=== PATIENT | male | born 1970 ===

== ENCOUNTER 2019-03-28 06:24 | Day surgery (SDC) | payer BC ==
[2019-03-28] MEDS ORDERED: MARCAINE 0.25% INFILTRATI ONE ×2 (06:39→09:22)
[2019-03-28] MEDS ORDERED: XYLOCAINE 1% 20 mL ONE (06:39)
--- NOTE | 2019-03-28 07:26 | Anesthesia Day of Surgery ---
Anesthesia Day of Surgery - Day of Surgery Patient Examined: Yes Patient H&P Reviewed: Yes Patient is NPO: Yes
--- NOTE | 2019-03-28 07:26 | Anesthesia Consultation ---
Anesthesia Consult and Med Hx Date of service: 03/28/19 - Airway Anesthetic Teeth Evaluation: Good ROM Head & Neck: Adequate Mental/Hyoid Distance: Adequate Mallampati Class: Class II Intubation Access Assessment: Probably Good - Cardiac Exam Cardiac Exam: RRR - Pre-Operative Health Status ASA Pre-Surgery Classification: ASA1 Proposed Anesthetic Plan: General, MAC - Pulmonary Hx Smoking: No - Other Systems Hx Cancer: No - Additional Comments Anesthesia Medical History Comments: Healthy. No home meds.
[2019-03-28] MEDS ORDERED: LACTATED RINGERS 1,000 ML IV SCH (08:00)
[2019-03-28] MEDS ORDERED: VERSED IV NR (08:00)
[2019-03-28] MEDS ORDERED: PEPCID PO NR (08:00)
[2019-03-28] MEDS ORDERED: VERSED ONE (08:40)
[2019-03-28] MEDS ORDERED: SUBLIMAZE ONE (08:40)
[2019-03-28] MEDS ORDERED: DIPRIVAN 10 MG/ML IV ONE ×2 (08:40→09:11)
[2019-03-28] MEDS ORDERED: ANCEF/STERILE WATER 2 GM/20 ML IV NR (09:00)
--- NOTE | 2019-03-28 09:20 | Short Stay Summary ---
Short Stay Documentation Date of service: 03/28/19 - History Principal diagnosis: RIGHT NECK CYST H&P: obtained from office - Allergies and Medications Current Medications: Allergies No Known Allergies Allergy (Verified 03/25/19 15:56) Home Medications Medication Instructions Recorded Confirmed Last Taken Type No Known Home Medications [No 03/25/19 03/25/19 Unknown History Reported Home Medications] Active Medications Cefazolin Sodium (Ancef/Sterile Water 2 Gm/20 Ml) 2 gm IV PREOP NR Stop: 03/28/19 20:00 Famotidine (Pepcid) 20 mg PO PREOP NR Stop: 03/28/19 20:00 Last Admin: 03/28/19 08:04 Dose: 20 mg Documented by: Lactated Ringer's (Lactated Ringers) 1,000 mls @ 100 mls/hr IV DIRECT MARLENY Last Admin: 03/28/19 07:40 Dose: 100 mls/hr Documented by: Midazolam HCl (Versed) 2 mg IV PREOP NR Stop: 03/28/19 23:59 - Brief post op/procedure progress note Date of procedure: 03/28/19 Pre-op diagnosis: right neck cyst Post-op diagnosis: same Procedure: excision of cyst right side of neck Anesthesia: MAC, local Findings: 2.5 cm cyst of right side of neck Surgeon: MITRA COSTA Estimated blood loss: minimal Pathology: list (cyst right neck) Specimen disposition: to lab Condition: stable - Hospital course Hospital course: Pt observed in PACU and discharged to home in stable condition when criteria met - Disposition Condition at discharge: Good Disposition: DC-01 TO HOME OR SELFCARE Short Stay Discharge Plan Activity: no restrictions Diet: regular Wound: open to air, per your surgeon's advice Additional Instructions: SEE PRINTED DISCHARGE INSTRUCTIONS Follow up with: ASHLEY MONACO MD [Primary Care Provider] - 7 Days MITRA COSTA DO [Staff Physician] - 14 Days Prescriptions: Ibuprofen [Motrin 800 MG tab] 800 mg PO Q8HR PRN #30 tablet PRN Reason: Pain, Moderate (4-6)
[2019-03-28] MEDS ORDERED: XYLOCAINE 1% 20 mL INFILTRATI ONE (09:22)
--- NOTE | 2019-03-28 17:18 | Operative Report ---
PREOPERATIVE DIAGNOSIS: Right neck cyst. POSTOPERATIVE DIAGNOSIS: Right neck cyst. PROCEDURE: Excision of cyst of right side of neck. ANESTHESIA: MAC with local. FINDINGS: A 2.5-cm cyst of right side of neck. SURGEON: Lanny Blood DO ESTIMATED BLOOD LOSS: Minimal. PATHOLOGY: Cyst of right neck. SPECIMEN DISPOSITION: To lab. CONDITION AND DISPOSITION: The patient is stable to PACU. HISTORY OF PRESENT ILLNESS AND INDICATION: The patient is a 48-year-old male who was referred to the surgery clinic for a mass on the right side of his neck. The patient did undergo CAT scan prior to coming to the clinic which showed a cyst-like structure in that region. On physical exam, there was a 2-3 cm soft tissue mass of the right upper neck, which was mobile and nontender. Recommendation was to have it removed. All risks, benefits, and alternatives to surgery were discussed with the patient and consent obtained. PROCEDURE IN DETAIL: The patient was identified in the preoperative area, taken back to the operating room and placed on the operating table in supine position. After anesthesia was induced, the head was turned to the left and hair surrounding the cyst were clipped. The area was prepped and draped in the usual sterile fashion and a timeout performed. Local anesthetic was infiltrated into the skin at the intended incision site. An incision was made over the cyst and dissection carried down through the skin and subcutaneous tissue using Bovie electrocautery. Once the cyst was encountered, it was circumferentially dissected free from the surrounding tissue using blunt dissection with a hemostat. Once circumferentially dissected, the cyst was eviscerated from the wound and transected from the wound bed using electrocautery. The cyst measured at 2.5 cm and passed off table as specimen. The wound was then irrigated and checked for hemostasis. Hemostasis was achieved with a combination of electrocautery and pressure. Once hemostasis was ensured, the wound was closed in a 2-layer fashion. The deep dermal layer was closed with 3-0 Vicryl interrupted sutures, and the skin was closed with 4-0 Monocryl subcuticular stitches and skin glue. At the end of the case, all sponge, instrument, and sharp counts were correct x 2. The patient was awoken from anesthesia and taken to PACU in stable condition. JOB# [id number] BIANCA/RONNIE
[2019-03-28 19:59] VITALS: BP 116/72
== END 2019-03-28 06:25 | disposition home or self-care (01) ==
LOC: OR 06:24
PROVIDERS: ATTEND Surgery
DX: R22.1 Localized swelling, mass and lump, neck (principal); M50.90 Cervical disc disorder, unspecified, unspecified cervical region; L98.8 Other specified disorders of the skin and subcutaneous tissue; Z79.899 Other long term (current) drug therapy
CPT/HCPCS: 11423; 12041; 88305; J2250; J2704; J3010; J7120; 88304